=== PATIENT | male | born 2000 | race Caucasian/White ===

== ENCOUNTER 2023-06-30 08:00 | Outpatient (CLI) | payer OTHER ==
[2023-06-30 23:50] LABS: CHLAMYDIA TRACHOMATIS DNA NEGATIVE (NEGATIVE); NEISSERIA GONORRHOEAE DNA NEGATIVE (NEGATIVE); TRICHOMONAS VAGINALIS DNA NEGATIVE (NEGATIVE)
[2023-07-02 05:12] LABS: RPR Non Reactive (Non Reactive)
[2023-07-03 01:08] LABS: HIV SCREEN 4TH GENERATION Non Reactive (Non Reactive)
== END 2023-06-30 23:59 | disposition home or self-care (01) ==
LOC: LAB.N 08:00
PROVIDERS: ATTEND Physician Assistant Medical
DX: A55 Chlamydial lymphogranuloma (venereum) (principal)
CPT/HCPCS: 36415; 81599; 86592; 86803; 87389; 87491; 87591; 87661

== ENCOUNTER 2023-07-01 08:00 | Outpatient (CLI) | payer OTHER | END 2023-07-01 23:59 | disposition home or self-care (01) | LOC: LAB.R 08:00 | PROVIDERS: ATTEND Physician Assistant Medical | DX: A55 Chlamydial lymphogranuloma (venereum) (principal) | CPT/HCPCS: 87045; 87046; 87427 ==

== ENCOUNTER 2023-12-03 13:45 | Outpatient (CLI) | payer OTHER ==
[2023-12-03 22:52] LABS: CHLAMYDIA TRACHOMATIS DNA NEGATIVE (NEGATIVE); NEISSERIA GONORRHOEAE DNA NEGATIVE (NEGATIVE); TRICHOMONAS VAGINALIS DNA NEGATIVE (NEGATIVE)
== END 2023-12-03 14:00 | disposition home or self-care (01) ==
LOC: LAB.N 13:45
PROVIDERS: ATTEND Family Medicine
DX: Z11.3 Encounter for screening for infections with a predominantly sexual mode of transmission (principal)
CPT/HCPCS: 36415; 81599; 86592; 86695; 86696; 86803; 87255; 87389; 87491; 87529; 87591; 87661